=== PATIENT | female | born 1980 | race Hispanic/Latino ===

== ENCOUNTER → 2021-06-20 | Day surgery (SDC) | payer OTHER ==
[2021-06-20 20:03] LABS: SARS-CoV-2 NAA Rapid Test DETECTED (NotDetected)
== END ==
LOC: CSHER/OP 18:57
PROVIDERS: ATTEND Pathology Anatomic Pathology & Clinical Pathology
DX: U07.1 COVID-19 (principal)
CPT/HCPCS: U0002

== ENCOUNTER 2021-09-08 08:47 | Outpatient (CLI) | payer BC | END 2021-09-08 08:48 | disposition home or self-care (01) | LOC: CSHMAMMO 08:47 | PROVIDERS: ATTEND Obstetrics & Gynecology | DX: R92.2 Inconclusive mammogram (principal); N63.20 Unspecified lump in the left breast, unspecified quadrant | CPT/HCPCS: 77063; 77067; G0279 ==